=== PATIENT | female | born 1990 | race American Indian/Alaskan Native ===

== ENCOUNTER 2020-10-27 13:21 | Inpatient (IN) | payer MEDICAID ==
--- NOTE | 2020-10-27 13:43 | Event Note ---
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 Further treatment and workup at subsequent clinical providers discretion. Patient/guardian urged not to elope from the ED as their condition may be serious if not clinically assessed and managed. Initial orders include: ekg labs ua xr chest
--- NOTE | 2020-10-27 14:31 | Electrocardiograph Report ---
[facility] Test Date: 2020-10-27 Test Time: 13:41:58 Pat Name: ANGEL LUIS MG Department: Room: Gender: F Supply Chain Manager: RUPERTO : 1990 Requested By: ED DOC Order Number: [id number] Reading MD: Alex Tinajero Measurements Intervals [place] Rate: 82 P: -7 TX: 115 QRS: 38 QRSD: 67 T: 36 QT: 381 QTc: 445 Interpretive Statements Sinus rhythm Abnormal Q suggests septal infarct No previous ECG available for comparison Electronically Signed On 10-27-2020 14:31:21 EDT by Alex Tinajero
[2020-10-27 14:43] LABS: Eosinophils % (Auto) 0.2 % (0.0-4.3); Hematocrit 44.8 % (30.3-42.9); Hemoglobin 14.3 gm/dl (10.1-14.3); Mean Corpuscular HGB Conc 32 % (30-34); Mean Corpuscular Volume 75 fl (79-97); Monocytes # (Auto) 0.8 K/mm3 (0.0-0.8); Monocytes % (Auto) 8.7 % (0.0-7.3); Red Blood Count 5.94 M/mm3 (3.65-5.03); Red Cell Distribution Width 14.6 % (13.2-15.2)
[2020-10-27 14:53] LABS: INR 0.92 (0.87-1.13)
[2020-10-27 14:54] LABS: Partial Thromboplastin Time 23.8 Sec. (24.2-36.6)
[2020-10-27 15:12] LABS: Alanine Aminotransferase 66 units/L (7-56); Albumin 4.9 g/dL (3.9-5); BUN/Creatinine Ratio 17; Blood Urea Nitrogen 15 mg/dL (7-17); Calcium 10.5 mg/dL (8.4-10.2); Hemolysis Index 9
[2020-10-27 15:44] LABS: Platelet Count 331 K/mm3 (140-440)
--- NOTE | 2020-10-27 16:18 | XRay Report ---
CHEST 2 VIEWS INDICATION / CLINICAL INFORMATION: Shortness of breath. COMPARISON: None available. FINDINGS: SUPPORT DEVICES: None. HEART / MEDIASTINUM: No significant abnormality. LUNGS / PLEURA: No significant pulmonary or pleural abnormality. No pneumothorax. ADDITIONAL FINDINGS: No significant additional findings. IMPRESSION: 1. No acute findings. Signer Name: Bryant Em MD Signed: 10/27/2020 4:14 PM Workstation Name: [id number]
[2020-10-27] MEDS ORDERED: SODIUM CHLORIDE 0.9% 1000 ML 1,000 ML IV ONE (20:57)
--- NOTE | 2020-10-27 21:29 | Emergency Department Report ---
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 The patient states that for the last 5 days or so she has had nausea with 3-4 episodes of nonbloody nonbilious emesis per day. In addition, she has not had a bowel movement for the last 6 days. However, over the past 2 days she developed a constant pressure-like pain in the center of her chest with associated shortness of breath. There are no known aggravating or alleviating factors. She has not tried taking anything for her symptoms. She denies any associated fever/chills, headache, vision change, neck pain, back pain, cough, dysuria, or any other associated complaints. Severity scale (0 -10): 7 - Related Data Allergies Allergy/AdvReac Type Severity Reaction Status Date / Time No Known Allergies Allergy Verified 10/27/20 23:49 Heart Score - HEART Score History: Moderately suspicious EKG: Non-specific Age: < 45 Risk factors: 1-2 risk factors Troponin: < normal limit HEART Score: 3 - EKG Read Time Time EKG Completed: 13:41 EKG Read Time: 15:15 ED Review of Systems ROS: Stated complaint: CHEST PAINS SOB Other details as noted in HPI Constitutional: denies: chills, fever Eyes: denies: eye pain, vision change ENT: denies: throat pain, congestion Respiratory: shortness of breath. denies: cough Cardiovascular: chest pain. denies: palpitations, syncope Gastrointestinal: abdominal pain, nausea, vomiting, constipation Genitourinary: denies: dysuria, frequency Musculoskeletal: denies: back pain, myalgia Skin: denies: rash Neurological: denies: headache, weakness, numbness ED Past Medical Hx - Past Medical History Previous Medical History?: Yes Hx Hypertension: Yes - Surgical History Past Surgical History?: Yes Additional Surgical History: spleenectomy, part of her pancreas removed secondary to mass. ED Physical Exam - General Limitations: No Limitations - Other Other exam information: GENERAL: Well developed and well nourished. In mild distress secondary to pain HEENT: Normocephalic. No obvious signs of trauma. Dry mucous membranes. EYES: Extraocular movements are intact. Pupils are equal round and reactive to light bilaterally NECK: Supple. Trachea is midline. LUNGS: Nonlabored breathing. Equal chest rise bilaterally. Clear to auscultation bilaterally. HEART/CARDIOVASCULAR: Regular rate and rhythm. No murmurs or rubs. VASCULAR: 2+ peripheral pulses. Cap refill < 2 seconds ABDOMEN: Abdomen is distended but soft. There is significant tenderness noted most prominently in the epigastrium and left upper quadrant with voluntary but no involuntary guarding. There is no rebound tenderness. SKIN: Skin is warm and dry NEURO: Patient is awake, alert, and oriented. quality assurance lead II-XII grossly intact. No focal deficits. Normal motor and sensory exam throughout. Normal speech. MUSCULOSKELETAL: No obvious deformities. No significant tenderness. Normal ROM throughout. BACK/SPINE: No costovertebral angle tenderness. ED Course Vital Signs 10/27/20 10/27/20 10/27/20 13:37 20:33 22:58 Temperature 98.0 F 97.4 F L Pulse Rate 97 H 89 Respiratory 20 15 18 Rate Blood Pressure 150/105 Blood Pressure 148/115 [Left] O2 Sat by Pulse 100 100 Oximetry 10/27/20 23:34 Temperature 97.9 F Pulse Rate 87 Respiratory 16 Rate Blood Pressure Blood Pressure 167/96 [Left] O2 Sat by Pulse 98 Oximetry CANELO score - Canelo Score Age > 65: (0) No Aspirin use within the Past 7 Days: (0) No 3 or more CAD Risk Factors: (0) No 2 or more Angina events in past 24 hrs: (0) No Known CAD with more than 50% Stenosis: (0) No Elevated Cardiac Markers: (0) No ST Deviation Greater than 0.5mm: (0) No CANELO Score: 0 ED Medical Decision Making - Lab Data Result diagrams: 10/27/20 13:51 10/27/20 13:51 Lab Results 10/27/20 10/27/20 10/27/20 Range/Units 13:51 13:51 13:51 WBC 9.3 (4.5-11.0) K/mm3 RBC 5.94 H (3.65-5.03) M/mm3 Hgb 14.3 (10.1-14.3) gm/dl Hct 44.8 H (30.3-42.9) % MCV 75 L (79-97) fl MCH 24 L (28-32) pg MCHC 32 (30-34) % RDW 14.6 (13.2-15.2) % Plt Count 331 (140-440) K/mm3 Lymph % (Auto) Not Reportable Rabun % (Auto) 8.7 H (0.0-7.3) % Eos % (Auto) 0.2 (0.0-4.3) % Baso % (Auto) Not Reportable Lymph # (Auto) Not Reportable Rabun # (Auto) 0.8 (0.0-0.8) K/mm3 Eos # (Auto) 0.0 (0.0-0.4) K/mm3 Baso # (Auto) 0.0 (0.0-0.1) K/mm3 Seg Neutrophils % 69.7 (40.0-70.0) % Seg Neutrophils # 6.5 (1.8-7.7) K/mm3 PT 13.0 (12.2-14.9) Sec. INR 0.92 (0.87-1.13) APTT 23.8 L (24.2-36.6) Sec. Sodium 137 (137-145) mmol/L Potassium 4.2 (3.6-5.0) mmol/L Chloride 97.2 L (98-107) mmol/L Carbon Dioxide 24 (22-30) mmol/L Anion Gap 20 mmol/L BUN 15 (7-17) mg/dL Creatinine 0.9 (0.6-1.2) mg/dL Estimated GFR > 60 ml/min BUN/Creatinine Ratio 17 % Glucose 97 (65-100) mg/dL Calcium 10.5 H (8.4-10.2) mg/dL Total Bilirubin 0.90 (0.1-1.2) mg/dL AST 34 (5-40) units/L ALT 66 H (7-56) units/L Alkaline Phosphatase 175 H (35-129) units/L Troponin T < 0.010 (0.00-0.029) ng/mL NT-Pro-B Natriuret Pep (0-450) pg/mL Total Protein 8.9 H (6.3-8.2) g/dL Albumin 4.9 (3.9-5) g/dL Albumin/Globulin Ratio 1.2 % Lipase 14 (13-60) units/L TSH (0.270-4.200) mlU/mL HCG, Quant (0-4) mIU/mL 10/27/20 10/27/20 10/27/20 Range/Units 13:51 13:51 13:51 WBC (4.5-11.0) K/mm3 RBC (3.65-5.03) M/mm3 Hgb (10.1-14.3) gm/dl Hct (30.3-42.9) % MCV (79-97) fl MCH (28-32) pg MCHC (30-34) % RDW (13.2-15.2) % Plt Count (140-440) K/mm3 Lymph % (Auto) Rabun % (Auto) (0.0-7.3) % Eos % (Auto) (0.0-4.3) % Baso % (Auto) Lymph # (Auto) Rabun # (Auto) (0.0-0.8) K/mm3 Eos # (Auto) (0.0-0.4) K/mm3 Baso # (Auto) (0.0-0.1) K/mm3 Seg Neutrophils % (40.0-70.0) % Seg Neutrophils # (1.8-7.7) K/mm3 PT (12.2-14.9) Sec. INR (0.87-1.13) APTT (24.2-36.6) Sec. Sodium (137-145) mmol/L Potassium (3.6-5.0) mmol/L Chloride (98-107) mmol/L Carbon Dioxide (22-30) mmol/L Anion Gap mmol/L BUN (7-17) mg/dL Creatinine (0.6-1.2) mg/dL Estimated GFR ml/min BUN/Creatinine Ratio % Glucose (65-100) mg/dL Calcium (8.4-10.2) mg/dL Total Bilirubin (0.1-1.2) mg/dL AST (5-40) units/L ALT (7-56) units/L Alkaline Phosphatase (35-129) units/L Troponin T (0.00-0.029) ng/mL NT-Pro-B Natriuret Pep 119.7 (0-450) pg/mL Total Protein (6.3-8.2) g/dL Albumin (3.9-5) g/dL Albumin/Globulin Ratio % Lipase (13-60) units/L TSH 2.570 (0.270-4.200) mlU/mL HCG, Quant < 2 (0-4) mIU/mL 10/27/20 Range/Units 20:08 WBC (4.5-11.0) K/mm3 RBC (3.65-5.03) M/mm3 Hgb (10.1-14.3) gm/dl Hct (30.3-42.9) % MCV (79-97) fl MCH (28-32) pg MCHC (30-34) % RDW (13.2-15.2) % Plt Count (140-440) K/mm3 Lymph % (Auto) [place] % (Auto) (0.0-7.3) % Eos % (Auto) (0.0-4.3) % Baso % (Auto) Lymph # (Auto) Rabun # (Auto) (0.0-0.8) K/mm3 Eos # (Auto) (0.0-0.4) K/mm3 Baso # (Auto) (0.0-0.1) K/mm3 Seg Neutrophils % (40.0-70.0) % Seg Neutrophils # (1.8-7.7) K/mm3 PT (12.2-14.9) Sec. INR (0.87-1.13) APTT (24.2-36.6) Sec. Sodium (137-145) mmol/L Potassium (3.6-5.0) mmol/L Chloride (98-107) mmol/L Carbon Dioxide (22-30) mmol/L Anion Gap mmol/L BUN (7-17) mg/dL Creatinine (0.6-1.2) mg/dL Estimated GFR ml/min BUN/Creatinine Ratio % Glucose (65-100) mg/dL Calcium (8.4-10.2) mg/dL Total Bilirubin (0.1-1.2) mg/dL AST (5-40) units/L ALT (7-56) units/L Alkaline Phosphatase (35-129) units/L Troponin T < 0.010 (0.00-0.029) ng/mL NT-Pro-B Natriuret Pep (0-450) pg/mL Total Protein (6.3-8.2) g/dL Albumin (3.9-5) g/dL Albumin/Globulin Ratio % Lipase (13-60) units/L TSH (0.270-4.200) mlU/mL HCG, Quant (0-4) mIU/mL - EKG Data -: EKG Interpreted by Me - EKG Data 10/28/20 00:02 EKG #1. Normal sinus rhythm. Normal axis. Normal intervals. Inverted T waves noted in leads V2 and V3. No significant ST segment abnormalities. EKG #2. Normal sinus rhythm. Normal axis. Normal intervals. Inverted T waves noted in leads V1 and V2. No significant ST segment abnormalities. - Radiology Data CHEST 2 VIEWS INDICATION / CLINICAL INFORMATION: Shortness of breath. COMPARISON: None available. FINDINGS: SUPPORT DEVICES: None. HEART / MEDIASTINUM: No significant abnormality. LUNGS / PLEURA: No significant pulmonary or pleural abnormality. No pneumothorax. ADDITIONAL FINDINGS: No significant additional findings. IMPRESSION: 1. No acute findings. Signer Name: Bryant Em MD Signed: 10/27/2020 3:14 PM Workstation Name: [id number][id number] CTA CHEST WITH CONTRAST INDICATION / CLINICAL INFORMATION: Patient complains of chest pain with S.O.B. x 2 days. [id number] 100ml. TECHNIQUE: Axial CT images were obtained through the chest after injection of IV contrast. 3 plane MIP and/or 3D reconstructions were produced. All CT scans at this location are performed using CT dose reduction for ALARA by means of automated exposure control. COMPARISON: Chest radiograph from the same date. FINDINGS: PULMONARY ARTERIES: No pulmonary emboli. THORACIC AORTA: No significant abnormality. HEART: No significant abnormality. CORONARY ARTERIES: No significant calcification. MEDIASTINUM / WAYLON: No significant abnormality. PLEURA: No pleural effusion. No pneumothorax. LUNGS: No acute air space or interstitial disease. ADDITIONAL FINDINGS: None. SKELETAL STRUCTURES: No significant osseous abnormality. IMPRESSION: 1. No CT evidence for pulmonary embolism. 2. No acute findings. Signer Name: Ryan Jamil MD Signed: 10/27/2020 8:56 PM Workstation Name: [id number][id number] CT ABDOMEN AND PELVIS WITH CONTRAST INDICATION / CLINICAL INFORMATION: Patient complains of epigastric tenderness. TECHNIQUE: Axial CT images were obtained through the abdomen and pelvis following the administration of intravenous contrast. All CT scans at this location are performed using CT dose reduction for ALARA by means of automated exposure control. COMPARISON: None available. FINDINGS: LOWER CHEST: No significant abnormality. LIVER: No significant abnormality. GALLBLADDER: Cholelithiasis. No evidence of cholecystitis. PANCREAS: No significant abnormality. SPLEEN: The spleen is absent. ADRENALS: No significant abnormality. KIDNEYS / URETERS: No significant abnormality. URINARY BLADDER: No significant abnormality. REPRODUCTIVE ORGANS: There is a 4 cm left ovarian mass contains fat and soft tissue and possible tiny calcification. STOMACH / SMALL BOWEL: There is bowel malrotation, with the majority of small bowel in the left abdomen. There is no evidence of obstruction or perforation. COLON: No significant abnormality. APPENDIX: No significant abnormality. PERITONEUM: No free fluid. No free air. No fluid collection. LYMPH NODES: No significant adenopathy. AORTA / ARTERIES: No significant abnormality. IVC / VEINS: No significant abnormality. SKELETAL SYSTEM: No significant abnormality. ADDITIONAL FINDINGS: None. IMPRESSION: 1. No acute abdominopelvic abnormality. The spleen is absent. 2. Evidence of bowel malrotation, with the majority of small bowel in the left abdomen. No evidence of bowel obstruction or perforation. 3. Uncomplicated cholelithiasis. 4. 4 cm left ovarian dermoid wh ich warrants gynecologic follow-up. Signer Name: Ryan Jamil MD Signed: 10/27/2020 9:01 PM Workstation Name: [email or web address][id number] - Medical Decision Making 30-year-old female with history of some kind of cystic pancreatic mass requiring splenectomy in March 2020 presenting with 2 days of chest pain shortness of breath and 5 days of abdominal pain, nausea/vomiting, and constipation. The patient's last bowel movement was 6 days ago. Initial assessment, she is noted to be in moderate distress secondary to pain. She is clutching her epigastrium. She has dry mucous membranes. Lungs are clear to auscultation. Her abdomen is slightly distended but soft. She has exquisite tenderness of the epigastrium and left upper quadrant with voluntary but no involuntary guarding. She has no rebound tenderness. Given the patient's multiple complaints and her history and physical exam, we will perform very broad work-up with a full set of labs and EKG. We will obtain CTA of the chest with follow-through to the abdomen pelvis to assess for evidence of pulmonary embolism, pneumonia, bowel obstruction, or other intra abdominal or intrathoracic abnormality. The patien t's blood pressure is noted to be elevated but may be secondary to pain. We will give 1 L of IV fluids and morphine as needed for pain Labs have resulted and reveal no significant leukocytosis or anemia. There are no significant electrolyte abnormalities. Kidney function is normal. Troponin is negative. BNP is negative. TSH is normal. CTA of the chest reveals no evidence of pulmonary embolus, pneumonia, or other abnormality. CT of the abdomen pelvis reveals malrotation with the majority of the small bowel being on the left side of the abdomen, which is where she is tender. There is no obvious evidence of obstruction or perforation on CT. There is mention of a 4 cm ovarian cyst which will require gynecologic follow- up. I have informed the patient of this incidental finding. Given that clinically her presentation and exam is most consistent with possible (and maybe partial) SBO, I will consult surgery and plan to admit the patient to the on- call hospitalist for further IV fluids, pain medication, and general surgery consultation. At 10:22 PM, I spoke with Dr. Mark over the phone regarding the case. She states that given the CT read she does not feel that there is a need for an NG tube at this time. However, she states that she is happy to consult on the patient and feels it is reasonable to admit the patient for IV rehydration, pain medication, and serial exams. At 10:45 PM, the patient's blood pressure is noted to be extremely elevated in the 170s systolic. We will administer 2 mg of IV morphine and reassess. On repeat assessment at 12:08 AM, the patient reports that her pain is much improved but her blood pressure remains elevated at 165/106. Therefore we will administer 20 mg of IV labetalol. Critical Care Time: Yes (35 mins) Critical care time in (mins) excluding proc time.: 35 Critical care attestation.: If time is entered above; I have spent that time in minutes in the direct care of this critically ill patient, excluding procedure time. Critical care time was spent in the evaluation/assessment, and management of hypertensive urgency requiring administration of IV antihypertensives as well as coordination of care between specialists for possible small bowel obstruction. ED Disposition Clinical Impression: Hypertensive urgency, Small bowel obstruction, Intestine, malrotation, Shortness of breath Ovarian cyst Qualifiers: Laterality: unspecified laterality Qualified Code(s): N83.209 - Unspecified ovarian cyst, unspecified side Chest pain Qualifiers: Chest pain type: unspecified Qualified Code(s): R07.9 - Chest pain, unspecified Disposition: DC-09 OP ADMIT IP TO THIS HOSP Is pt being admited?: Yes Condition: Stable
--- NOTE | 2020-10-27 22:00 | Cat Scan Report ---
CTA CHEST WITH CONTRAST INDICATION / CLINICAL INFORMATION: Patient complains of chest pain with S.O.B. x 2 days. [id number] 100ml. TECHNIQUE: Axial CT images were obtained through the chest after injection of IV contrast. 3 plane MIP and/or 3D reconstructions were produced. All CT scans at this location are performed using CT dose reduction f or ALARA by means of automated exposure control. COMPARISON: Chest radiograph from the same date. FINDINGS: PULMONARY ARTERIES: No pulmonary emboli. THORACIC AORTA: No significant abnormality. HEART: No significant abnormality. CORONARY ARTERIES: No significant calcification. MEDIASTINUM / WAYLON: No significant abnormality. PLEURA: No pleural effusion. No pneumothorax. LUNGS: No acute air space or interstitial disease. ADDITIONAL FINDINGS: None. SKELETAL STRUCTURES: No significant osseous abnormality. IMPRESSION: 1. No CT evidence for pulmonary embolism. 2. No acute findings. Signer Name: Ryan Jamil MD Signed: 10/27/2020 9:56 PM Workstation Name: [id number]
--- NOTE | 2020-10-27 22:06 | Cat Scan Report ---
CT ABDOMEN AND PELVIS WITH CONTRAST INDICATION / CLINICAL INFORMATION: Patient complains of epigastric tenderness. TECHNIQUE: Axial CT images were obtained through the abdomen and pelvis following the administration of intraven ous contrast. All CT scans at this location are performed using CT dose reduction for ALARA by means of automated exposure control. COMPARISON: None available. FINDINGS: LOWER CHEST: No significant abnormality. LIVER: No significant abnormality. GALLBLADDER: Cholelithiasis. No evidence of cholecystitis. PANCREAS: No significant abnormality. SPLEEN: The spleen is absent. ADRENALS: No significant abnormality. KIDNEYS / URETERS: No significant abnormality. URINARY BLADDER: No significant abnormality. REPRODUCTIVE ORGANS: There is a 4 cm left ovarian mass contains fat and soft tissue and possible tiny calcification. STOMACH / SMALL BOWEL: There is bowel malrotation, with the majority of small bowel in the left abdom en. There is no evidence of obstruction or perforation. COLON: No significant abnormality. APPENDIX: No significant abnormality. PERITONEUM: No free fluid. No free air. No fluid collection. LYMPH NODES: No significant adenopathy. AORTA / ARTERIES: No significant abnormality. IVC / VEINS: No significant abnormality. SKELETAL SYSTEM: No significant abnormality. ADDITIONAL FINDINGS: None. IMPRESSION: 1. No acute abdominopelvic abnormality. The spleen is absent. 2. Evidence of bowel malrotation, with the majority of small bowel in the left abdomen. No evidence o f bowel obstruction or perforation. 3. Uncomplicated cholelithiasis. 4. 4 cm left ovarian dermoid which warrants gynecologic follow-up. Signer Name: Ryan Jamil MD Signed: 10/27/2020 10:01 PM Workstation Name: [id number]
[2020-10-27] MEDS ORDERED: MORPHINE 2 MG/1 ML INJ IV ONE ×2 (22:23→22:57)
[2020-10-27] MEDS ORDERED: ONDANSETRON 4 MG/2 ML INJ IV PRN (23:40)
[2020-10-27] MEDS ORDERED: MAGNESIUM HYDROXIDE (MOM) ORAL LIQD UDC PO PRN (23:40)
[2020-10-27] MEDS ORDERED: ACETAMINOPHEN 325 MG TAB PO PRN (23:40)
[2020-10-27] MEDS ORDERED: SODIUM CHLORIDE 0.9% 1000 ML 1,000 ML IV SCH (23:45)
--- NOTE | 2020-10-27 23:46 | History and Physical Report ---
History of Present Illness Date of examination: 10/27/20 Date of admission: 10/27/20 22:58 Chief complaint: Abdominal Pain Shortness of Breath Chest Discomfort History of present illness: 30-year-old -[place] female with known history of hypertension and also history of nonmalignant pancreatic mass requiring splenectomy sometime in March 2020 presenting to the emergency room today with multiple complaints including chest pain, shortness of breath, abdominal pain, nausea and vomiting which has been ongoing for about 5 days. Patient has denied any fever or chills, denies any headache or dizziness, denies any diaphoresis. She denies any hematuria or dysuria. However she has not had a bowel movement for the past 6 days. Patient indicates that she has developed constant pressure-like Pain on the chest with associated shortness of breath. No no relieving or exacerbating factor. She denies any sick contacts and no recent travel. Denies any contact with anyone with COVID-19. Work-up in the emergency room, troponins were negative. CT of the abdomen and pelvis shows evidence of bowel malrotation with majority of small bowel in the left abdomen. No evidence of bowel obstruction or perforation. Uncomplicated cholelithiasis. 4 cm left ovarian dermoid which warrants gynecologic follow-up. General surgeon on-call Dr. Mark was notified of the CT abdominal findings. Patient is being admitted with nausea and vomiting, abdominal pain and chest pain. Past History Past Medical History: hypertension, other (H/O Pancreatic mass) Past Surgical History: Other (Splenectomy, Partial Pancreatectomy) Social history: no significant social history Family history: no significant family history Medications and Allergies Allergies Allergy/AdvReac Type Severity Reaction Status Date / Time No Known Allergies Allergy Verified 10/27/20 23:49 Active Meds: Active Medications Acetaminophen (Acetaminophen 325 Mg Tab) 650 mg PO Q4H PRN PRN Reason: Pain MILD(1-3)/Fever >100.5/JENKINS Sodium Chloride (Nacl 0.9% 1000 Ml) 1,000 mls @ 125 mls/hr IV DIRECT SIMONE Magnesium Hydroxide (Magnesium Hydroxide (Mom) Oral Liqd Udc) 30 ml PO Q4H PRN PRN Reason: Constipation Morphine Sulfate (Morphine 2 Mg/1 Ml Inj) 2 mg IV Q4H PRN PRN Reason: Pain, Moderate (4-6) Ondansetron HCl (Ondansetron 4 Mg/2 Ml Inj) 4 mg IV Q8H PRN PRN Reason: Nausea And Vomiting Sodium Chloride (Sodium Chloride 0.9% 10 Ml Flush Syringe) 10 ml IV BID SIMONE Sodium Chloride (Sodium Chloride 0.9% 10 Ml Flush Syringe) 10 ml IV PRN PRN PRN Reason: LINE FLUSH Review of Systems Constitutional: no fever, no chills Ears, nose, mouth and throat: no nasal congestion, no sore throat Cardiovascular: no chest pain, no palpitations Respiratory: no cough, no shortness of breath Gastrointestinal: abdominal pain, nausea, vomiting, constipation, no melena Genitourinary Female: no pelvic pain, no flank pain, no dysuria, no hematuria Musculoskeletal: no neck pain, no low back pain Integumentary: no rash, no pruritis Neurological: no headaches, no confusion Psychiatric: no anxiety, no depression Endocrine: no polyphagia, no polydipsia, no polyuria, no nocturia Exam - Constitutional Vitals: Temp Pulse Resp BP Pulse Ox 97.9 F 87 16 167/96 98 10/27/20 23:34 10/27/20 23:34 10/27/20 23:34 10/27/20 23:34 10/27/20 23:34 General appearance: Present: no acute distress, well-nourished - EENT Eyes: Present: PERRL, EOM intact. Absent: scleral icterus ENT: hearing intact, clear oral mucosa, dentition normal - Neck Neck: Present: supple, normal ROM - Respiratory Respiratory effort: normal Respiratory: bilateral: CTA - Cardiovascular Rhythm: regular Heart Sounds: Present: S1 & S2. Absent: gallop, systolic murmur, diastolic murmur, rub, click - Extremities Extremities: no ischemia, pulses intact, pulses symmetrical, No edema, Full ROM Peripheral Pulses: within normal limits - Abdominal General gastrointestinal: Present: soft, tender (left upper quadrant, no guarding and no rebound tenderness.), non-distended, normal bowel sounds, other (Scar of old surgery on left upper quadrant). Absent: mass - Integumentary Integumentary: Present: clear, warm, dry. Absent: rash - Musculoskeletal Musculoskeletal: strength equal bilaterally - Psychiatric Psychiatric: appropriate mood/affect, intact judgment & insight, memory intact, cooperative - Neurologic Neurologic: CNII-XII intact, no focal deficits, moves all extremities HEART Score - HEART Score EKG: Non-specific Age: < 45 Risk factors: 1-2 risk factors Troponin: Troponin T < 0.010 ng/mL (0.00-0.029) 10/27/20 20:08 Troponin: < normal limit Results - Labs CBC & Chem 7: 10/27/20 13:51 10/27/20 13:51 Labs: Abnormal lab results 10/27/20 10/27/20 10/27/20 Range/Units 13:51 13:51 13:51 RBC 5.94 H (3.65-5.03) M/mm3 Hct 44.8 H (30.3-42.9) % MCV 75 L (79-97) fl MCH 24 L (28-32) pg [place] % (Auto) 8.7 H (0.0-7.3) % APTT 23.8 L (24.2-36.6) Sec. Chloride 97.2 L (98-107) mmol/L Calcium 10.5 H (8.4-10.2) mg/dL ALT 66 H (7-56) units/L Alkaline Phosphatase 175 H (35-129) units/L Total Protein 8.9 H (6.3-8.2) g/dL Assessment and Plan - Patient Problems (1) Abdominal pain Current Visit: Yes Status: Acute Plan to address problem: Etiology is unclear. Possibly secondary to intestinal malrotation versus constipation. Patient placed on analgesic medication. We will also place on laxatives. Patient has had abdominal surgery in the past involving splenectomy and partial pancreatectomy. Consult has been placed to general surgeon for evaluation and recommendation. (2) DVT prophylaxis Current Visit: Yes Status: Acute Plan to address problem: Patient placed on sequential compression device. (3) Full code status Current Visit: Yes Status: Acute Plan to address problem: Patient is full code.
[2020-10-27] MEDS ORDERED: NITROGLYCERIN 0.4 MG TAB SUBL SL PRN (23:52)
[2020-10-27] MEDS ORDERED: MORPHINE 4 MG/1 ML INJ IV PRN (23:52)
[2020-10-28] MEDS ORDERED: hydrALAZINE 20 MG/1 ML INJ IV PRN ×2 (01:46→16:47)
[2020-10-28] MEDS ORDERED: cloNIDine TTS 0.2 MG/24 HR PATCH TD SCH (02:00)
[2020-10-28] MEDS ORDERED: REGADENOSON 0.4 MG/5 ML INJ IV ONE ×2 (07:04→08:33)
[2020-10-28 07:58] LABS: Basophils % (Auto) 0.4 % (0.0-1.8); Eosinophils % (Auto) 0.2 % (0.0-4.3); Hematocrit 42.1 % (30.3-42.9); Hemoglobin 13.3 gm/dl (10.1-14.3); Lymphocytes # (Auto) 2.2 K/mm3 (1.2-5.4); Lymphocytes % (Auto) 22.1 % (13.4-35.0); Mean Corpuscular HGB Conc 32 % (30-34); Mean Corpuscular Volume 75 fl (79-97); Monocytes # (Auto) 0.9 K/mm3 (0.0-0.8); Monocytes % (Auto) 8.9 % (0.0-7.3); Platelet Count 343 K/mm3 (140-440); Red Blood Count 5.57 M/mm3 (3.65-5.03); Red Cell Distribution Width 14.4 % (13.2-15.2)
[2020-10-28 08:09] LABS: INR 0.97 (0.87-1.13)
[2020-10-28 08:14] LABS: BUN/Creatinine Ratio 15; Blood Urea Nitrogen 12 mg/dL (7-17); Calcium 8.9 mg/dL (8.4-10.2); Hemolysis Index 8
[2020-10-28 08:39] LABS: Bilirubin,Urine NEG (Negative); Blood,Urine MOD (Negative); Color,Urine Yellow (Yellow); Protein,Urine <15 mg/dL mg/dL (Negative); Urobilinogen,Urine < 2.0 mg/dL (<2.0)
--- NOTE | 2020-10-28 09:21 | Consultation ---
History of Present Illness Consult date: 10/28/20 Consult reason: chest pain History of present illness: 30-year old F who is admitted with epigastric pain and left abdominal tenderness associated with nausea and vomiting. CT scan of the abdomen reports findings of bowel malrotation with the majority of the small bowel being on the left side of the abdomen. In the emergency department, she was noted hypertensive with SBP ranging 150- 180s. Patient has a history of hypertension and takes Labetalol. No prior cardiac history. Serial troponin measurements were normal. An ECG is sinus rhythm with septal Q waves. No prior ECG available for comparison. Past History Past Medical History: hypertension, other (H/O Pancreatic mass) Past Surgical History: Other (Splenectomy, Partial Pancreatectomy) Social history: no significant social history Family history: no significant family history Medications and Allergies Allergies Allergy/AdvReac Type Severity Reaction Status Date / Time No Known Allergies Allergy Verified 10/27/20 23:49 Home Medications Medication Instructions Recorded Confirmed Last Taken Type Labetalol HCl [Labetalol 300mg TAB] 300 mg PO BID 10/28/20 10/28/20 10/21/20 His tory Active Meds: Active Medications Acetaminophen (Acetaminophen 325 Mg Tab) 650 mg PO Q4H PRN PRN Reason: Pain MILD(1-3)/Fever >100.5/JENKINS Aspirin (Aspirin Ec 325 Mg Tab) 325 mg PO QDAY SIMONE Bisacodyl (Bisacodyl 10 Mg Rect Supp) 10 mg NM QDAY SIMONE Clonidine HCl (Clonidine Tts 0.2 Mg/24 Hr Patch) 0.2 mg TD Fr SIMONE Last Admin: 10/28/20 02:06 Dose: 0.2 mg Documented by: Hydralazine HCl (Hydralazine 20 Mg/1 Ml Inj) 10 mg IV Q4HR PRN PRN Reason: Blood Pressure Last Admin: 10/28/20 01:55 Dose: 10 mg Documented by: Sodium Chloride (Nacl 0.9% 1000 Ml) 1,000 mls @ 125 mls/hr IV DIRECT SIMONE Last Admin: 10/28/20 01:08 Dose: 125 mls/hr Documented by: Magnesium Hydroxide (Magnesium Hydroxide (Mom) Oral Liqd Udc) 30 ml PO Q4H PRN PRN Reason: Constipation Morphine Sulfate (Morphine 2 Mg/1 Ml Inj) 2 mg IV Q4H PRN PRN Reason: Pain, Moderate (4-6) Morphine Sulfate (Morphine 4 Mg/1 Ml Inj) 2 mg IV Q5MIN PRN PRN Reason: Chest Pain Nitroglycerin (Nitroglycerin 0.4 Mg Tab Subl) 0.4 mg SL Q5M PRN PRN Reason: Chest Pain Ondansetron HCl (Ondansetron 4 Mg/2 Ml Inj) 4 mg IV Q8H PRN PRN Reason: Nausea And Vomiting Last Admin: 10/28/20 08:37 Dose: 4 mg Documented by: Sodium Chloride (Sodium Chloride 0.9% 10 Ml Flush Syringe) 10 ml IV BID SIMONE Sodium Chloride (Sodium Chloride 0.9% 10 Ml Flush Syringe) 10 ml IV PRN PRN PRN Reason: LINE FLUSH Review of Systems Cardiovascular: no palpitations, no edema, no shortness of breath Physical Examination Vital Signs Temp Pulse Resp BP Pulse Ox 98.0 F 97 H 20 150/105 100 10/27/20 13:37 10/27/20 13:37 10/27/20 13:37 10/27/20 13:37 10/27/20 13:37 General appearance: no acute distress HEENT: Positive: PERRL Neck: Positive: trachea midline Cardiac: Positive: Reg Rate and Rhythm Lungs: Positive: Decreased Breath Sounds Neuro: Positive: Grossly Intact Extremities: Absent: edema Results 10/28/20 07:29 10/28/20 07:29 Cardiac Enzymes 10/27/20 Range/Units 13:51 AST 34 (5-40) units/L Coagulation 10/27/20 10/28/20 Range/Units 13:51 07:29 PT 13.0 13.5 (12.2-14.9) Sec. INR 0.92 0.97 (0.87-1.13) APTT 23.8 L (24.2-36.6) Sec. CBC 10/27/20 10/28/20 Range/Units 13:51 07:29 WBC 9.3 9.9 (4.5-11.0) K/mm3 RBC 5.94 H 5.57 H (3.65-5.03) M/mm3 Hgb 14.3 13.3 (10.1-14.3) gm/dl Hct 44.8 H 42.1 (30.3-42.9) % Plt Count 331 343 (140-440) K/mm3 Lymph # (Auto) Not Reportable 2.2 [place] # (Auto) 0.8 0.9 H (0.0-0.8) K/mm3 Eos # (Auto) 0.0 0.0 (0.0-0.4) K/mm3 Baso # (Auto) 0.0 0.0 (0.0-0.1) K/mm3 Comprehensive Metabolic Panel 10/27/20 10/28/20 Range/Units 13:51 07:29 Sodium 137 136 L (137-145) mmol/L Potassium 4.2 3.5 L (3.6-5.0) mmol/L Chloride 97.2 L 100.5 (98-107) mmol/L Carbon Dioxide 24 22 (22-30) mmol/L BUN 15 12 (7-17) mg/dL Creatinine 0.9 0.8 (0.6-1.2) mg/dL Glucose 97 90 (65-100) mg/dL Calcium 10.5 H 8.9 D (8.4-10.2) mg/dL AST 34 (5-40) units/L ALT 66 H (7-56) units/L Alkaline Phosphatase 175 H (35-129) units/L Total Protein 8.9 H (6.3-8.2) g/dL Albumin 4.9 (3.9-5) g/dL Assessment and Plan - Patient Problems (1) Hypertensive urgency Current Visit: Yes Status: Acute Plan to address problem: Echocardiogram will be done for LVEF assessment. Optimal hypertension management. (2) Abdominal pain Current Visit: Yes Status: Acute Plan to address problem: CT scan of the abdomen reports findings of bowel malrotation with the majority of the small bowel being on the left side of the abdomen. CTA of the chest: no evidence of PE. Recommendations as per GI.
[2020-10-28] MEDS ORDERED: ASPIRIN EC 325 MG TAB PO SCH (10:00)
[2020-10-28] MEDS: MORPHINE 2 MG/1 ML INJ IV PRN (10:38)
--- NOTE | 2020-10-28 11:40 | Consultation ---
History of Present Illness Consult date: 10/28/20 Reason for consult: abdominal pain Chief complaint: abd pain - History of present illness History of present illness: 30 yo F with hx of HTN, pancreatic cyst s/p distal pancreatectomy with splenectomy in Mar 2020 at [facility] who presents to ER with 5 days of worsening upper abdominal pain, n/v. Patient felt she had food poisoning and started to have n/v but this continued for several days. Her abdominal pain is sharp and localized to the LUQ. It does not radiate. It came on suddenly and gradually wo rsened. She also started to experience heaviness in the mid chest with SOB several days after initial symptoms of abd pain, n/v. No f/c. She has not had a BM in 6 days. She is passing flatus. Past History Past Medical History: hypertension, other (H/O Pancreatic cyst) Past Surgical History: hernia repair (umbilical hernia Age 5), Other (Splenectomy, Partial Pancreatectomy) Social history: no significant social history Family history: no significant family history Medications and Allergies Allergies Allergy/AdvReac Type Severity Reaction Status Date / Time No Known Allergies Allergy Verified 10/27/20 23:49 Home Medications Medication Instructions Recorded Confirmed Last Taken Type Labetalol HCl [Labetalol 300mg TAB] 300 mg PO BID 10/28/20 10/28/20 10/21/20 History Active Meds: Active Medications Acetaminophen (Acetaminophen 325 Mg Tab) 650 mg PO Q4H PRN PRN Reason: Pain MILD(1-3)/Fever >100.5/JENKINS Aspirin (Aspirin Ec 325 Mg Tab) 325 mg PO QDAY [facility] Last Admin: 10/28/20 10:18 Dose: Not Given Documented by: Bisacodyl (Bisacodyl 10 Mg Rect Supp) 10 mg IA QDAY [facility] Last Admin: 10/28/20 10:38 Dose: 10 mg Documented by: Clonidine HCl (Clonidine Tts 0.2 Mg/24 Hr Patch) 0.2 mg TD Fr [facility] Last Admin: 10/28/20 02:06 Dose: 0.2 mg Documented by: Hydralazine HCl (Hydralazine 20 Mg/1 Ml Inj) 10 mg IV Q4HR PRN PRN Reason: Blood Pressure Last Admin: 10/28/20 01:55 Dose: 10 mg Documented by: Potassium Chloride/Dextrose/Sod Cl (D5w/Ns W/Kcl 20meq) 20 meq in 1,000 mls @ 75 mls/hr IV DIRECT SIMONE Magnesium Hydroxide (Magnesium Hydroxide (Mom) Oral Liqd Udc) 30 ml PO Q4H PRN PRN Reason: Constipation Morphine Sulfate (Morphine 2 Mg/1 Ml Inj) 2 mg IV Q4H PRN PRN Reason: Pain, Moderate (4-6) Last Admin: 10/28/20 10:38 Dose: 2 mg Documented by: Morphine Sulfate (Morphine 4 Mg/1 Ml Inj) 2 mg IV Q5MIN PRN PRN Reason: Chest Pain Nitroglycerin (Nitroglycerin 0.4 Mg Tab Subl) 0.4 mg SL Q5M PRN PRN Reason: Chest Pain Ondansetron HCl (Ondansetron 4 Mg/2 Ml Inj) 4 mg IV Q8H PRN PRN Reason: Nausea And Vomiting Last Admin: 10/28/20 08:37 Dose: 4 mg Documented by: Sodium Chloride (Sodium Chloride 0.9% 10 Ml Flush Syringe) 10 ml IV BID SIMONE Last Admin: 10/28/20 10:38 Dose: 10 ml Documented by: Sodium Chloride (Sodium Chloride 0.9% 10 Ml Flush Syringe) 10 ml IV PRN PRN PRN Reason: LINE FLUSH Review of Systems All systems: negative (10 pt ROS performed and negative except for that listed in HPI) Exam Vital Signs Temp Pulse Resp BP Pulse Ox 98.0 F 97 H 20 150/105 100 10/27/20 13:37 10/27/20 13:37 10/27/20 13:37 10/27/20 13:37 10/27/20 13:37 Narrative exam: Gen: AAox3. NAD ENT: no scleral icterus or conjunctival pallor CV: s1, S2+ Resp; even and unlabored Abd: soft, ND, LUQ TTP. There is a large subcostal scar on the left. There is a surgical scar at the umbilicus Ext: no c/c/e Results - Labs 10/28/20 07:29 10/28/20 07:29 Abnormal lab results 10/27/20 10/27/20 10/27/20 Range/Units 07:30 13:51 13:51 RBC 5.94 H (3.65-5.03) M/mm3 Hct 44.8 H (30.3-42.9) % MCV 75 L (79-97) fl MCH 24 L (28-32) pg [place] % (Auto) 8.7 H (0.0-7.3) % [place] # (Auto) (0.0-0.8) K/mm3 APTT 23.8 L (24.2-36.6) Sec. Sodium (137-145) mmol/L Potassium (3.6-5.0) mmol/L Chloride (98-107) mmol/L Calcium (8.4-10.2) mg/dL ALT (7-56) units/L Alkaline Phosphatase (35-129) units/L Total Protein (6.3-8.2) g/dL Ur Specific [place] 1.053 H (1.003-1.030) 10/27/20 10/28/20 10/28/20 Range/Units 13:51 07:29 07:29 RBC 5.57 H (3.65-5.03) M/mm3 Hct (30.3-42.9) % MCV 75 L (79-97) fl MCH 24 L (28-32) pg [place] % (Auto) 8.9 H (0.0-7.3) % [place] # (Auto) 0.9 H (0.0-0.8) K/mm3 APTT (24.2-36.6) Sec. Sodium 136 L (137-145) mmol/L Potassium 3.5 L (3.6-5.0) mmol/L Chloride 97.2 L (98-107) mmol/L Calcium 10.5 H (8.4-10.2) mg/dL ALT 66 H (7-56) units/L Alkaline Phosphatase 175 H (35-129) units/L Total Protein 8.9 H (6.3-8.2) g/dL Ur Specific [place] (1.003-1.030) Diabetes panel 10/27/20 10/28/20 Range/Units 13:51 07:29 Sodium 137 136 L (137-145) mmol/L Potassium 4.2 3.5 L (3.6-5.0) mmol/L Chloride 97.2 L 100.5 (98-107) mmol/L Carbon Dioxide 24 22 (22-30) mmol/L BUN 15 12 (7-17) mg/dL Creatinine 0.9 0.8 (0.6-1.2) mg/dL Glucose 97 90 (65-100) mg/dL Calcium 10.5 H 8.9 D (8.4-10.2) mg/dL AST 34 (5-40) units/L ALT 66 H (7-56) units/L Alkaline Phosphatase 175 H (35-129) units/L Total Protein 8.9 H (6.3-8.2) g/dL Albumin 4.9 (3.9-5) g/dL Thyroid panel 10/27/20 Range/Units 13:51 TSH 2.570 (0.270-4.200) mlU/mL Calcium panel 10/27/20 10/28/20 Range/Units 13:51 07:29 Calcium 10.5 H 8.9 D (8.4-10.2) mg/dL Albumin 4.9 (3.9-5) g/dL Pituitary panel 10/27/20 10/27/20 10/28/20 Range/Units 13:51 13:51 07:29 Sodium 137 136 L (137-145) mmol/L Potassium 4.2 3.5 L (3.6-5.0) mmol/L Chloride 97.2 L 100.5 (98-107) mmol/L Carbon Dioxide 24 22 (22-30) mmol/L BUN 15 12 (7-17) mg/dL Creatinine 0.9 0.8 (0.6-1.2) mg/dL Glucose 97 90 (65-100) mg/dL Calcium 10.5 H 8.9 D (8.4-10.2) mg/dL TSH 2.570 (0.270-4.200) mlU/mL Adrenal panel 10/27/20 10/28/20 Range/Units 13:51 07:29 Sodium 137 136 L (137-145) mmol/L Potassium 4.2 3.5 L (3.6-5.0) mmol/L Chloride 97.2 L 100.5 (98-107) mmol/L Carbon Dioxide 24 22 (22-30) mmol/L BUN 15 12 (7-17) mg/dL Creatinine 0.9 0.8 (0.6-1.2) mg/dL Glucose 97 90 (65-100) mg/dL Calcium 10.5 H 8.9 D (8.4-10.2) mg/dL Total Bilirubin 0.90 (0.1-1.2) mg/dL AST 34 (5-40) units/L ALT 66 H (7-56) units/L Alkaline Phosphatase 175 H (35-129) units/L Total Protein 8.9 H (6.3-8.2) g/dL Albumin 4.9 (3.9-5) g/dL - Imaging CT scan - abdomen: report reviewed, image reviewed CT scan - pelvis: report reviewed, image reviewed Assessment and Plan 30 yo M with LUQ abdominal pain. Ct A/P - reviewed independently and with Dr. Harvey. Patient with almost all small bowel localized to left upper and mid abdomen. No malrotation identified. NO obstruction. No hernia. +Constipation. Plan: 1. NPO 2. IVF 3. prn pain and nausea control 4. DVT and GI ppx 5. Will try and obtain CT scan results from [place] from 2019 6. Abnormal location of small bowel on CT scan and pain localized to this area on exam. Recommend diagnostic laparoroscopy possible exlap to evaluate bowel, r/o internal hernia. Discussed with patient who will speak with her . She wants her to be present before surgery however he is in [place] right now trying to return from a trip. I explained to patient that her condition could significantly worsen if surgery is delayed. I recommend proceeding with surgery today. She understands and will speak with her and make a final decision. I will follow up with her. Thank you, please call with questions.
[2020-10-28] MEDS: D5NS W/KCL 20 MEQ 20 MEQ/1,000 ML BAG IV SCH (12:07)
[2020-10-28] MEDS ORDERED: propofoL 200 MG/20 ML VIAL IV ONE (12:19)
[2020-10-28] MEDS ORDERED: HYDROmorphone 1 MG/1 ML INJ ONE (12:19)
[2020-10-28] MEDS ORDERED: ROCURONIUM 50 MG/5 ML INJ IV ONE ×2 (12:23→14:42)
[2020-10-28] MEDS ORDERED: SUCCINYLCHOLINE CHLORIDE 200 MG/10 ML INJ MDV ONE (12:23)
[2020-10-28] MEDS ORDERED: LIDOCAINE MPF (2%) 20 MG/1 ML VIAL 5 ML ONE (12:23)
[2020-10-28] MEDS: LACTATED RINGERS 1,000 ML IV SCH (12:59)
[2020-10-28] MEDS ORDERED: ONDANSETRON 4 MG/2 ML INJ IV PRN (13:21)
[2020-10-28] MEDS ORDERED: ceFAZolin/Water 2 GM/20 ML 2 GM/20 ML SYRINGE IV ONE (13:24)
--- NOTE | 2020-10-28 13:24 | Anesthesia Day of Surgery ---
Anesthesia Day of Surgery - Day of Surgery Patient Examined: Yes Patient H&P Reviewed: Yes Patient is NPO: Yes
--- NOTE | 2020-10-28 13:24 | Anesthesia Consultation ---
Anesthesia Consult and Med Hx Date of service: 10/28/20 - Airway Anesthetic Teeth Evaluation: Good ROM Head & Neck: Adequate Mental/Hyoid Distance: Adequate Mallampati Class: Class II Intubation Access Assessment: Probably Good - Pre-Operative Health Status ASA Pre-Surgery Classification: ASA2 Proposed Anesthetic Plan: General - Pulmonary Hx Smoking: No Hx Respiratory Symptoms: No - Cardiovascular System Hx Hypertension: Yes (clonidine patch in place while NPO) Hx Heart Attack/AMI: No Hx Percutaneous Transluminal Coronary Angioplasty (PTCA): No Hx Cardia Arrhythmia: No - Central Nervous System CVA: No - Endocrine Hx Renal Disease: No Hx Liver Disease: No Hx Insulin Dependent Diabetes: No Hx Non-Insulin Dependent Diabetes: No Hx Thyroid Disease: No - Hematic Hx Anemia: No - Other Systems Hx Obesity: No - Additional Comments Anesthesia Medical History Comments: Hx abdominal surgery now with abdominal pain and nausea scheduled for diagnostic laparascopy. Declines blood transfusion.
--- NOTE | 2020-10-28 13:51 | Progress Note ---
Assessment and Plan -- Abdominal pain Etiology is unclear. Possibly secondary to intestinal malrotation versus adhesion Patient placed on analgesic medication. Patient has had abdominal surgery in the past involving splenectomy and partial pancreatectomy. Consult has been placed to general surgeon for evaluation and recommendation. --Hyponatremia/hypokalemia Likely due to use severe dehydration, continue IV fluid and monitor BMP -- DVT prophylaxis Patient placed on sequential compression device. -- Full code status Brief history: 30 yo F with hx of HTN, pancreatic cyst s/p distal pancreatectomy with splenectomy in Mar 2020 at [facility] who presents to ER with 5 days of worsening upper abdominal pain, n/v. CT a/p showed almost all small bowel localized to left upper and mid abdomen. Patient placed on IV fluid, admitted to medicine floor and consulted surgery for further evaluation and management. Daily clinical course: 10/28/20: General surgery recommended diagnostic laparoscopy with exploratory laparotomy. But patient wanted to wait until she can discuss with her . Keep patient n.p.o., change IV fluid to D5 normal saline. Serum chemistry and vital closely Subjective Date of service: 10/28/20 Interval history: Patient seen and examined. Medical records and medication list reviewed. No acute event overnight noted by the RN. Patient continued complaints of abdominal pain and nausea. Planned for surgery today Discussed plan of care at bedside with patient. Objective - Exam Narrative Exam: General appearance: Present: no acute distress, well-nourished - EENT Eyes: Present: PERRL, EOM intact. Absent: scleral icterus ENT: hearing intact, clear oral mucosa, dentition normal - Neck Neck: Present: supple, normal ROM - Respiratory Respiratory effort: normal Respiratory: bilateral: CTA - Cardiovascular Rhythm: regular Heart Sounds: Present: S1 & S2. Absent: gallop, systolic murmur, diastolic murmur, rub, click - Extremities Extremities: no ischemia, pulses intact, pulses symmetrical, No edema, Full ROM Peripheral Pulses: within normal limits - Abdominal General gastrointestinal: Present: soft, tender (left upper quadrant, no guarding and no rebound tenderness.), non-distended, normal bowel sounds, other (Scar of old surgery on left upper quadrant). Absent: mass - Integumentary Integumentary: Present: clear, warm, dry. Absent: rash - Musculoskeletal Musculoskeletal: strength equal bilaterally - Psychiatric Psychiatric: appropriate mood/affect, intact judgment & insight, memory intact, cooperative - Neurologic Neurologic: CNII-XII intact, no focal deficits, moves all extremities - Constitutional Vitals: Vital Signs - 12hr 10/28/20 10/28/20 10/28/20 04:15 05:12 12:11 Temperature 98.5 F 98.8 F Pulse Rate 90 88 Respiratory 18 20 18 Rate Blood Pressure 140/91 130/95 O2 Sat by Pulse 99 100 100 Oximetry - Labs CBC & Chem 7: 10/28/20 07:29 10/28/20 07:29 Labs: Abnormal lab results 10/27/20 10/27/20 10/27/20 Range/Units 07:30 13:51 13:51 RBC 5.94 H (3.65-5.03) M/mm3 Hct 44.8 H (30.3-42.9) % MCV 75 L (79-97) fl MCH 24 L (28-32) pg [place] % (Auto) 8.7 H (0.0-7.3) % [place] # (Auto) (0.0-0.8) K/mm3 APTT 23.8 L (24.2-36.6) Sec. Sodium (137-145) mmol/L Potassium (3.6-5.0) mmol/L Chloride (98-107) mmol/L Calcium (8.4-10.2) mg/dL ALT (7-56) units/L Alkaline Phosphatase (35-129) units/L Total Protein (6.3-8.2) g/dL Ur Specific [place] 1.053 H (1.003-1.030) 10/27/20 10/28/20 10/28/20 Range/Units 13:51 07:29 07:29 RBC 5.57 H (3.65-5.03) M/mm3 Hct (30.3-42.9) % MCV 75 L (79-97) fl MCH 24 L (28-32) pg [place] % (Auto) 8.9 H (0.0-7.3) % [place] # (Auto) 0.9 H (0.0-0.8) K/mm3 APTT (24.2-36.6) Sec. Sodium 136 L (137-145) mmol/L Potassium 3.5 L (3.6-5.0) mmol/L Chloride 97.2 L (98-107) mmol/L Calcium 10.5 H (8.4-10.2) mg/dL ALT 66 H (7-56) units/L Alkaline Phosphatase 175 H (35-129) units/L Total Protein 8.9 H (6.3-8.2) g/dL Ur Specific [place] (1.003-1.030) HEART Score - HEART Score EKG: Non-specific Age: < 45 Risk factors: 1-2 risk factors Troponin: Troponin T < 0.010 ng/mL (0.00-0.029) 10/28/20 07:29 Troponin: < normal limit
[2020-10-28] MEDS ORDERED: ceFAZolin/STERILE WATER 2 GM/20 ML SYRINGE IV NR (14:00)
[2020-10-28] MEDS ORDERED: SCOPOLAMINE TRANSDERMAL PATCH 72 HR TD NR (14:00)
[2020-10-28] MEDS ORDERED: MIDAZOLAM 2 MG/2 ML INJ IV NR (14:00)
[2020-10-28] MEDS ORDERED: LIDOCAINE (1%) 10 MG/1 ML VIAL 20 ML MDV ONE (14:30)
[2020-10-28] MEDS ORDERED: BUPIVACAINE/PF (0.5%) 5 MG/1 ML 30 ML VIAL INFILTRATI ONE ×3 (14:30→14:39)
[2020-10-28] MEDS ORDERED: LIDOCAINE 1%/EPINEPHRINE 1:100,000 VIAL (20 ML) INFILTRATI ONE ×2 (14:39)
[2020-10-28] MEDS ORDERED: ONDANSETRON 4 MG/2 ML INJ ONE (14:42)
[2020-10-28] MEDS ORDERED: dexAMETHasone 20 MG/5 ML VIAL ONE (14:42)
[2020-10-28] MEDS ORDERED: GLYCOPYRROLATE 0.4 MG/2 ML INJ ONE ×2 (15:00→16:08)
[2020-10-28] MEDS ORDERED: PHENYLEPHRINE/NS 1,000 MCG/10 ML SYRINGE (OR USE) IV ONE (15:00)
[2020-10-28] MEDS ORDERED: NEOSTIGMINE 10MG/10 ML INJ MDV ONE (15:00)
--- NOTE | 2020-10-28 16:19 | Post Operative Note ---
Pre-op diagnosis: abd pain, intractable n/v, possible internal hernia Post-op diagnosis: other (internal hernia, SBO) Findings: Omental adhesions to midline abdominal wall Interloop small bowel adhesions and small bowel adhesions to left lateral abdominal wall in LUQ Internal hernia with SBO 2/2 adhesions from transverse colon mesentery to 2 loops of small bowel in LUQ All small bowel viable Procedure: diagnostic laparoscopy, lysis of adhesions Anesthesia: JACKELYNA, local Surgeon: KEVIN ROBLES Actuarial Intern: MELVIN MORRISON Estimated blood loss: minimal Pathology: none Condition: stable Disposition: PACU
[2020-10-28] MEDS: HYDROmorphone 1 MG/1 ML INJ IV PRN ×2 (16:46→16:50)
--- NOTE | 2020-10-28 17:09 | Post Anesthesia Evaluation ---
- Post Anesthesia Evaluation Patient Participated: Yes Airway Patent: Yes Stable Respiratory Function: Yes Nausea/Vomiting: No Temp > 96.8F: Yes Pain Manageable: Yes Adequeate Hydration: Yes Anesthesia Complications: No
--- NOTE | 2020-10-28 17:13 | Operative Report ---
Operative Report Operative Report: Date: 10/28/20 Pre-op diagnosis: abd pain, intractable n/v, possible internal hernia Post-op diagnosis: other (internal hernia, SBO) Findings: Omental adhesions to midline abdominal wall Interloop small bowel adhesions and small bowel adhesions to left lateral abdominal wall in LUQ Internal hernia with SBO 2/2 adhesions from transverse colon mesentery to 2 loops of small bowel in LUQ All small bowel viable Procedure: diagnostic laparoscopy, lysis of adhesions Anesthesia: JACKELYNA, local Surgeon: KEVIN ROBLES Strategic Development Manager: MELVIN MORRISON Estimated blood loss: minimal Pathology: none Condition: stable Disposition: PACU HPI and indication: Patient is a 30-year-old female with a 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 Patient was found to have abnormal appearing small bowel on CT scan with the majority of the small bowel being localized in the left upper quadrant without obvious obstruction. The patient's tenderness was localized to the left upper quadrant on physical exam. It was recommended that she undergo diagnostic laparoscopy to rule out internal hernia or other intra- abdominal pathology. All risks, benefits, alternatives to surgery were discussed with the patient and questions answered. Consent obtained for diagnostic laparoscopy, possible exploratory laparotomy, possible bowel resection. Procedure in detail: Patient identified in the preoperative area, taken back to the operating room and placed on the operating room table in supine position. After anesthesia was induced a Barfield catheter was sterilely placed by the circulating nurse. Both arms were tucked and all bony prominences padded appropriately. The abdomen was prepped and draped in usual sterile fashion and a timeout performed. Local anesthetic was infiltrated into the skin at the intended incision sites. A mark incision was made at the umbilicus through which a Veress needle was inserted. The Veress needle positioning was confirmed using the saline drop test and the abdomen insufflated. The insufflation pressures were high therefore the Veress needle was removed. This was attempted 1 more time and successful placement of the Veress needle could not be performed. Therefore a cutdown technique was performed. A vertical supraumbilical incision was made using a 10 blade. Dissection was carried down through the subcutaneous tissue using electrocautery until the fascia was encountered. The fascia was grasped between 2 hemostats and incised using electrocautery. The peritoneum was then grasped between 2 hemostats and incised with Metzenbaum scissors. The abdomen was successfully entered and a 12 mm balloon trocar placed through this incision. The abdomen was then insufflated to 15 mmHg without incident. The abdomen was inspected and there was no underlying injury to any of the abdominal contents. The lower midline prepe ritoneal space did appear to have been insufflated with the Veress needle insertion attempts but no obvious entry into the peritoneal space. At this point 2 additional trocars were placed one in the right upper quadrant and one in the right lower quadrant under direct visualization. Upon inspection of the abdomen it did appear there were omental adhesions to the midline upper abdominal wall in the area of the falciform ligament. The majority of the small bowel was localized in the left upper quadrant. The colon appeared unremarkable with stool present. I examined the small bowel in the LUQ and there were adhesions from the colonic adhesions to the small bowel, interloop small bowel adhesions, and adhesions from small bowel to peritoneum in the LUQ. An additional 5 mm LUQ trocar was placed under direct visualization. I started by ligating adhesions from the omentum to the anterior abdominal wall to gain better visualization of the LUQ. Once this was adequate, the small bowel was ran from the terminal ileum proximally. As I reached mid small bowel interloop adhesions were taken down using endoshears. I continued to run the bowel proximally and an internal hernia was encountered secondary to a dense adhesions from the transverse colon mesentery to two loops of small bowel, creating an SBO. The adhesion was carefully dissected and then ligated with ligasure. The bowel was then ran to the ligament of treitz. Three additional lyn pole adhesions between the small bowel were lysed with the ligasure but these were not causing obstruction. The small bowel loops proximal and distal to the area of internal hernia were decompressed and those loops involved were mildly dilated and fuid filled. All small bowel was viable without injury. I ran the bowel again from terminal ileum to ligament of treitz. No areas of potential obstruction were identified. The bowel was peristalsing. The abdomen was then checked for hemostasis which was carefully ensured. The ports were removed and the abdomen desufflated. The fascia of the 12 mm port was closed using interrupted 0 Vicryl stitches. The skin incisions were once again infiltrated with local anesthetic. The skin was closed with 4-0 Monocryl subcuticular stitches and skin glue. At the end of the case, all sponge, instrument, sharp counts were correct x2. The patient was awoken from anesthesia, Barfield catheter removed, and she was taken to PACU in stable condition. Patient has been updated of intraoperative findings and patient condition.
--- NOTE | 2020-10-28 18:09 | Electrocardiograph Report ---
[facility] Test Date: 2020-10-27 Test Time: 21:22:45 Pat Name: ANGEL LUIS MG Department: Room: A354 Gender: F [employer]: : 1990 Requested By: LUIS DOSS Order Number: [id number] Reading MD: Alex Tinajero Measurements Intervals [place] Rate: 78 P: 81 WV: 123 QRS: 22 QRSD: 66 T: 31 QT: 397 QTc: 452 Interpretive Statements Sinus rhythm Nonspecific anterior T wave abnormality Compared to ECG 10/27/2020 13:41:58 No significant change Electronically Signed On 10-28-2020 18:08:58 EDT by Alex Tinajero
--- NOTE | 2020-10-28 18:18 | Electrocardiograph Report ---
[facility] Test Date: 2020-10-28 Test Time: 11:57:38 Pat Name: ANGEL LUIS MG Department: Room: A354 Gender: F Mooner: CLAUDIA : 1990 Requested By: JESUS HODGE Order Number: [id number] Reading MD: Alex Tinajero Measurements Intervals [place] Rate: 90 P: 56 MI: 133 QRS: 30 QRSD: 66 T: 8 QT: 364 QTc: 445 Interpretive Statements Sinus arrhythmia Compared to ECG 10/27/2020 21:22:45 No significant changes Electronically Signed On 10-28-2020 18:17:30 EDT by Alex Tinajero
[2020-10-29] MEDS: MORPHINE 2 MG/1 ML INJ IV PRN ×3 (05:22→14:11)
[2020-10-29] MEDS: LACTATED RINGERS 1,000 ML IV SCH (05:23)
[2020-10-29 12:29] VITALS: BP 128/86
[2020-10-29] MEDS ORDERED: oxyCODONE /ACETAMINOPHEN 5-325MG TAB PO PRN (14:17)
[2020-10-29] MEDS: D5NS W/KCL 20 MEQ 20 MEQ/1,000 ML BAG IV SCH (14:23)
--- NOTE | 2020-10-29 14:58 | Progress Note ---
Assessment and Plan -- Abdominal pain due to Internal hernia with SBO 2/2 adhesions from transverse colon mesentery to 2 loops of small bowel in LUQ Patient placed on analgesic medication. Patient has had abdominal surgery in the past involving splenectomy and partial pancreatectomy in the past. Consult has been placed to general surgeon for evaluation and recommendation. Status post diagnostic laparoscopy, lysis of adhesions --Hyponatremia/hypokalemia Likely due to use severe dehydration, continue IV fluid and monitor BMP -- DVT prophylaxis Patient placed on sequential compression device. -- Full code status Brief history: 30 yo F with hx of HTN, pancreatic cyst s/p distal pancreatectomy with splenectomy in Mar 2020 at [facility] who presents to ER with 5 days of worsening upper abdominal pain, n/v. CT a/p showed almost all small bowel localized to left upper and mid abdomen. Patient placed on IV fluid, admitted to medicine floor and consulted surgery for further evaluation and management. Daily clinical course: 10/28/20: General surgery recommended diagnostic laparoscopy with exploratory laparotomy. But patient wanted to wait until she can discuss with her . Keep patient n.p.o., change IV fluid to D5 normal saline. Serum chemistry and vital closely 10/29/20: Status post diagnostic laparoscopy, lysis of adhesions yesterday. patient tolerating clear liquid diet. Postop care per surgery. Continue supportive care. Subjective Date of service: 10/29/20 Objective - Constitutional Vitals: Vital Signs - 12hr 10/29/20 10/29/20 06:12 11:42 Temperature 98.8 F 99.0 F Pulse Rate 86 77 Respiratory 16 24 Rate Blood Pressure 118/85 128/86 O2 Sat by Pulse 99 100 Oximetry - Labs CBC & Chem 7: 10/28/20 07:29 10/28/20 07:29 HEART Score - HEART Score EKG: Non-specific Age: < 45 Risk factors: 1-2 risk factors Troponin: Troponin T < 0.010 ng/mL (0.00-0.029) 10/28/20 07:29 Troponin: < normal limit
[2020-10-29] MEDS ORDERED: HYDROcodone/ACETAMINOPHEN 5-325 MG TAB PO PRN (15:11)
--- NOTE | 2020-10-29 15:50 | Discharge Summary ---
Providers - Providers Date of Admission: 10/28/20 13:28 Date of discharge: 10/29/20 Attending physician: JOSE COFFEY 10/27/20 Consult to Cardiac Rehabilitation [CONS] Routine Reason For Exam: Phase I 10/27/20 23:00 Consult to Physician [CONS] Routine Comment: Consulting Provider: KEVIN ROBLES Physician Instructions: Reason For Exam: Possible SBO, malrotation 10/27/20 23:52 Consult to Cardiology [CONS] Routine Consulting Provider: VISHNU LI Reason For Exam: chest pain Primary care physician: CHART CLERK Hospitalization Condition: Stable Pertinent studies: Chest XRY, chest CTA, abdomen/pelvis CT Hospital course: 30 yo F with hx of HTN, pancreatic cyst s/p distal pancreatectomy with splenectomy in Mar 2020 at [facility] who presents to ER on 10/27/20 with 5 days of worsening upper abdominal pain, n/v. CT a/p showed almost all small bowel localized to left upper and mid abdomen. Patient placed on IV fluid, admitted to medicine floor and consulted surgery for further evaluation and management. Daily clinical course: 10/28/20: General surgery recommended diagnostic laparoscopy with exploratory laparotomy. But patient wanted to wait until she can discuss with her . Keep patient n.p.o., change IV fluid to D5 normal saline. Serum chemistry and vital closely 10/29/20: Status post diagnostic laparoscopy, lysis of adhesions yesterday. patient tolerating clear liquid diet. General surgery recommended to discharge patient home and follow-up as outpatient in 2 weeks. Discharge plan and management was discussed with the patient and she verbalized understanding. Patient will be discharged home with outpatient follow-up. Disposition: TO HOME OR SELFCARE Final Discharge Diagnosis (Prints w/discharge instructions): -- Abdominal pain. due to Internal hernia with SBO 2/2 adhesions from transverse colon mesentery to 2 loops of small bowel in LUQ. Status post diagnostic laparoscopy, lysis of adhesions. --Hyponatremia/hypokalemia. Likely due to use severe dehydration, improved with IV fluid Time spent for discharge: 34 minutes Core Measure Documentation - Palliative Care Palliative Care/ Comfort Measures: Not Applicable - Core Measures Any of the following diagnoses?: none Exam - Physical Exam Narrative exam: General appearance: Present: no acute distress, well-nourished - EENT Eyes: Present: PERRL, EOM intact. Absent: scleral icterus ENT: hearing intact, clear oral mucosa, dentition normal - Neck Neck: Present: supple, normal ROM - Respiratory Respiratory effort: normal Respiratory: bilateral: CTA - Cardiovascular Rhythm: regular Heart Sounds: Present: S1 & S2. Absent: gallop, systolic murmur, diastolic murmur, rub, click - Extremities Extremities: no ischemia, pulses intact, pulses symmetrical, No edema, Full ROM Peripheral Pulses: within normal limits - Abdominal General gastrointestinal: Present: soft, tender (left upper quadrant, no guarding and no rebound tenderness.), non-distended, normal bowel sounds, other (Scar of old surgery on left upper quadrant). Absent: mass - Integumentary Integumentary: Present: clear, warm, dry. Absent: rash - Musculoskeletal Musculoskeletal: strength equal bilaterally - Psychiatric Psychiatric: appropriate mood/affect, intact judgment & insight, memory intact, cooperative - Neurologic Neurologic: CNII-XII intact, no focal deficits, moves all extremities - Constitutional Vitals: Temp Pulse Resp BP Pulse Ox 99.0 F 77 24 128/86 100 10/29/20 11:42 10/29/20 11:42 10/29/20 11:42 10/29/20 11:42 10/29/20 11:42 Plan Activity: advance as tolerated Weight Bearing Status: Non-Weight Bearing Diet: advance as tolerated Additional Instructions: Follow-up with Dr. robles in 2 weeks Follow up with: KEVIN ROBLES DO [Staff Physician] - 14 Days PRIMARY CARE, [Primary Care Provider] - 3-5 Days Prescriptions: HYDROcodone/APAP 5-325 [[place] 5-325 mg TAB] 1 each PO Q4H PRN #20 tablet PRN Reason: Pain, Moderate (4-6) Ondansetron [Zofran Odt] 4 mg PO Q8HR PRN #30 tab.rapdis PRN Reason: Nausea Ondansetron [Zofran Odt] 4 mg SUBLINGUAL Q8HR PRN #30 tab.rapdis PRN Reason: Nausea
--- NOTE | 2020-10-29 16:17 | Progress Note ---
Assessment and Plan 30 yo F s/p diagnostic laparoscopy, lysis of adhesions, POD 1 Plan: 1. adv to soft diet 2. prn PO pain control 3. OOB/ambulate 4. IS/pulm toilet 5. Ice to incisions 6. Intraop findings discussed with patient and parents (with her permission). Ok to dc home from surgery standpoint. Pt given verbal and written dc instructions as well and rx for norco and zofran D/W Dr. Zuleta Thank you, please call with questions. Subjective Date of service: 10/29/20 Narrative: Pt seen and examined. c/o mild incisional pain. Ambulating in room. No f/c. No n/v. Tolerating CLD. States she is hungry for more food. LUQ pain has resolved. Has been passing flatus and had a small BM. Objective Vital Signs - 12hr 10/29/20 10/29/20 06:12 11:42 Temperature 98.8 F 99.0 F Pulse Rate 86 77 Respiratory 16 24 Rate Blood Pressure 118/85 128/86 O2 Sat by Pulse 99 100 Oximetry - General physical appearance Narrative Exam: Gen; AAOx3. NAD CV: S1, S2+ Resp: even and unlabored Abd: soft, ND, mild incisional TTP. Incisions c/d/i. No r/r/g Ext: no c/c/e - Labs 10/28/20 07:29 10/28/20 07:29
== END 2020-10-29 17:42 | disposition home or self-care (01) | DRG 336 ==
LOC: ED 13:21 → 3A 22:58 → OBSVTOIN 10-28 13:28
PROVIDERS: ADMIT Internal Medicine Geriatric Medicine; ATTEND Internal Medicine
PROC: 0DN84ZZ Release Small Intestine, Percutaneous Endoscopic Approach (ICD-10-PCS; principal; 2020-10-28)
PROC: 0DNU4ZZ Release Omentum, Percutaneous Endoscopic Approach (ICD-10-PCS; 2020-10-28)
PROC: 0DNW4ZZ Release Peritoneum, Percutaneous Endoscopic Approach (ICD-10-PCS; 2020-10-28)
PROC: 0DNL4ZZ Release Transverse Colon, Percutaneous Endoscopic Approach (ICD-10-PCS; 2020-10-28)
DX: K56.50 Intestinal adhesions [bands], unspecified as to partial versus complete obstruction (principal); K45.0 Other specified abdominal hernia with obstruction, without gangrene; E87.1 Hypo-osmolality and hyponatremia; I10 Essential (primary) hypertension; E87.6 Hypokalemia; E86.0 Dehydration; I16.0 Hypertensive urgency; Z90.411 Acquired partial absence of pancreas; Z90.81 Acquired absence of spleen; Z79.899 Other long term (current) drug therapy
CPT/HCPCS: 36415; 71046; 71275; 74177; 80048; 80053; 81001; 83690; 83880; 84443; 84484; 84702; 85025; 85610; 85730; 93005; 93306; 96361; 96374; G0378; J0330; J0360; J0690; J1100; J1170; J2250; J2270; J2370; J2405; J2704; J2710; J7030; J7120; Q9967